=== PATIENT | male | born 1945 | race Caucasian/White ===

== ENCOUNTER 2024-02-28 10:35 | Outpatient (CLI) | payer OTHER, SELFPAY ==
[2024-02-28 11:02] LABS: Microscopic, Urine URINE MICROSCOPIC (MICROSCOPIC)
[2024-02-28 11:36] LABS: Albumin Level 3.9 g/dl (3.5-5.0); Chloride 102 mmol/L (98-107)
[2024-02-28 11:37] LABS: Potassium 4.3 mmoL/L (3.5-5.1); Sodium 139 mmol/L (136-145)
[2024-02-28 11:38] LABS: Appearance,Urine CLEAR (Clear); Bilirubin,Urine Negative (Negative); Blood, Urine Negative (Negative); Color,Urine YELLOW (Yellow); Glucose,Urine (UA) Negative (Negative); Ketones,Urine Negative (Negative); Leukocyte Esterase,Urine Negative (Negative); Nitrate,Urine Negative (Negative); PH,Urine 6.5 (5.0-8.5); Protein,Urine 1+ (Negative); Urobilinogen,Urine 0.2 EU/dl (0.2)
[2024-02-28 11:39] LABS: Alanine Aminotransferase 16 U/L (12-78); Anion Gap 11.3 mEq/L (5-15); Aspartate Amino Transferase 24 U/L (17-59); Blood Urea Nitrogen 30 mg/dl (9-20); Carbon Dioxide 30 mmol/L (22.0-30.0); Estimated Glomerular Filt Rate 49 ml/min (>60); GFR (African American) 59 ML/MIN (>60)
[2024-02-28 11:40] LABS: Albumin/Globulin Ratio 1.6 (1.1-1.8); Alkaline Phosphatase 55 U/L (38-126); Bilirubin,Total 0.6 mg/dl (0.2-1.3); Calcium 9.1 mg/dl (8.4-10.2); Globulin 2.4 g/dL (1.3-3.2); Glucose 131 mg/dl (74-100); Total Protein,Serum 6.3 g/dl (6.3-8.2)
== END 2024-02-28 23:59 | disposition home or self-care (01) ==
LOC: LAB 10:39
PROVIDERS: Visit Provider Chiropractor
DX: E11.9 Type 2 diabetes mellitus without complications (principal)
CPT/HCPCS: 36415; 80053; 81001